=== PATIENT | female | born 1965 | race Caucasian/White ===

== ENCOUNTER 2017-09-16 13:51 | Emergency (ER) | payer MEDICARE, OTHER ==
[~2017-09-16] VITALS: Ht 165.1 cm; Wt 69.8 kg
[~2017-09-16 13:51] MED LIST: BACLOFEN 10MG T10 M1 PO; CELEXA40 MG PO; ESTRADIOL 1 MG T1 M1 PO; FLEXERIL PO; IBUPROFEN 800800 M1 PO; IBUPROFEN 800800 MG PO; TOPAMAX100 MG PO
[2017-09-16] MEDS ORDERED: ZETIA10 MG PO (13:58)
[2017-09-16] MEDS ORDERED: FISH OIL 1,001000 M2 PO (13:58)
[2017-09-16] MEDS ORDERED: PROZAC20 MG PO (13:58)
[2017-09-16] MEDS ORDERED: ERGOCALCIF50000 UNIT PO (13:58)
[2017-09-16 15:12] LABS: URINE BILIRUBIN NEGATIVE (Negative); URINE BLOOD 3+ (Negative); URINE CLARITY CLOUDY; URINE COLOR DARK YELLOW; URINE GLUCOSE-RANDOM NEGATIVE (Negative); URINE KETONES 3+ (Negative); URINE LEUKOCYTES-REFLEX TRACE (Negative); URINE NITRITE-REFLEX POSITIVE (Negative); URINE PROTEIN 3+ (Negative); URINE SPECIFIC GRAVITY >= 1.030 (1.005-1.030)
[2017-09-16 15:13] LABS: HEMATOCRIT 41.9 % (37.0-47.0); HEMOGLOBIN 14.2 gm/dL (12.0-15.0); MCH 30.5 pg (26.0-34.0); MCHC 33.8 g/dL (28.0-37.0); MCV 90.1 fL (80.0-100.0); MPV 8.4 fl. (7.2-11.1); NUCLEATED RBCS 0 /100WBC; PLATELET COUNT* 225 thou/uL (150-400); RBC 4.65 mil/uL (4.20-5.00); RDW-CV 13.7 % (10.5-14.5); WBC 16.9 thou/uL (4.0-11.0)
[2017-09-16 15:16] LABS: CALCIUM 9.2 mg/dL (8.5-10.1); CREATININE 0.8 mg/dL (0.6-1.3); POTASSIUM 3.7 mmol/L (3.5-5.1)
[2017-09-16 15:19] LABS: BACTERIA-REFLEX >30 Many /HPF (None Seen); CASTS None Seen /LPF (None Seen); CRYSTALS None Seen /LPF (None Seen); SQUAMOUS NONE SEEN /LPF (0-3); URINE RBC 0-2 Rare /HPF (0-2); URINE WBC-REFLEX >25 Many /HPF (0-5); WBC CLUMPS Moderate (None Seen)
[2017-09-16 15:21] LABS: ALBUMIN 3.2 g/dL (3.4-5.0); TOTAL BILIRUBIN 0.7 mg/dL (<0.1-1.0); TOTAL PROTEIN 8.4 g/dL (6.4-8.2)
[2017-09-16 15:31] LABS: ABSOLUTE LYMPHOCYTES 1.7 thou/uL (0.8-5.3); ABSOLUTE MONOCYTES 0.5 thou/uL (0.0-1.2); ABSOLUTE NEUTROPHILS 14.7 thou/uL (1.6-8.1); PLATELET ESTIMATE ADEQUATE
[2017-09-16] MEDS ORDERED: LEVAQUIN 500 M500 M2 PO (17:08)
[2017-09-16] MEDS ORDERED: NORCO 7.5-3251 EACH PO (17:09)
[2017-09-16] MEDS ORDERED: ZOFRAN ODT4 MG PO (17:09)
[2017-09-16 17:19] VITALS: BP 122/67
== END 2017-09-16 17:21 | disposition home or self-care (01) ==
LOC: M.ERS 13:51
PROVIDERS: Physician Assistant
DX: N12 Tubulo-interstitial nephritis, not specified as acute or chronic (principal); B34.9 Viral infection, unspecified; G80.9 Cerebral palsy, unspecified; Z88.8 Allergy status to other drugs, medicaments and biological substances; Z88.2 Allergy status to sulfonamides

== ENCOUNTER → 2017-10-18 | Outpatient (CLI) | payer MEDICARE, OTHER ==
[~2017-10-18] MED LIST changes: +AMBIEN 5 MG TABL5 M1 PO; +ERGOCALCIF50000 UNIT PO; +FISH OIL 1,001000 M2 PO; +FLOMAX0.4 MG; +LEVAQUIN 500 M500 M2 PO; +NORCO 5-325 TA1 EACH PO; +NORCO 7.5-3251 EACH PO; +PRAVACHOL20 MG PO; +PROZAC20 MG; +PROZAC20 MG PO; +VITAMIN D3400 UNIT PO; +ZETIA10 MG PO; +ZOFRAN ODT4 MG PO
[2017-10-18 10:43] LABS: ABSOLUTE EOSINOPHILS 0.2 thou/uL (0.0-0.7); ABSOLUTE LYMPHOCYTES 1.9 thou/uL (0.8-5.3); ABSOLUTE MONOCYTES 0.4 thou/uL (0.0-1.2); ABSOLUTE NEUTROPHILS 4.8 thou/uL (1.6-8.1); BASOPHILS 0.5 %; EOSINOPHILS 2.6 %; HEMATOCRIT 41.1 % (37.0-47.0); HEMOGLOBIN 13.7 gm/dL (12.0-15.0); LYMPHOCYTES 25.9 %; MCH 30.2 pg (26.0-34.0); MCHC 33.4 g/dL (28.0-37.0); MCV 90.4 fL (80.0-100.0); MONOCYTES 5.6 %; MPV 7.7 fl. (7.2-11.1); NUCLEATED RBCS 0 /100WBC; PLATELET COUNT* 312 thou/uL (150-400); POLYS 65.4 %; RBC 4.55 mil/uL (4.20-5.00); RDW-CV 14.4 % (10.5-14.5); WBC 7.3 thou/uL (4.0-11.0)
[2017-10-18 10:55] LABS: CREATININE 0.6 mg/dL (0.6-1.3); POTASSIUM 3.9 mmol/L (3.5-5.1); URIC ACID* 4.2 mg/dL (2.6-7.2)
--- NOTE | 2017-10-18 15:22 | EKG ---
[place] [address] ELECTROCARDIOGRAM REPORT Name: JOSEPHTIARA GEE Room: [facility]#: [id number] Admission: 10/18/17 Attend Phys: José Antonio Wu MD Discharge: Date of : 65 Report #: [id number] THIS REPORT FOR: //name// [facility] Test Date: 2017-10-18 Test Time: 11:06:01 Pat Name: TIARA RUIZ Department: Room: Gender: F [employer]: AUDREY : 1965 Requested By: José Antonio Wu Order Number: [id number] Reading MD: Osvaldo Godfrey Measurements Intervals Keno Rate: 70 P: 23 [place]: 164 QRS: -1 QRSD: 86 T: 20 QT: 407 QTc: 440 Interpretive Statements Sinus rhythm No previous ECG available for comparison Electronically Signed On 10-18-2017 15:22:18 [employer] by Osvaldo Godfrey [email or web address] <ELECTRONICALLY SIGNED> By: Osvaldo Godfrey MD, [facility] 10/18/17 1522 [id number] Osvaldo Godfrey MD, FACC /EPI
[2017-10-19 22:11] LABS: URINE CALCIUM 259.2 mg/24 hr (100.0-300.0); URINE CALCIUM-mg/dl 16.2 mg/dL (Not Estab.)
== END ==
LOC: M.LAB 10:15 → M.CRD 10:15
PROVIDERS: Urology
DX: Z01.818 Encounter for other preprocedural examination (principal); N20.0 Calculus of kidney

== ENCOUNTER 2017-10-27 17:25 | Emergency (ER) | payer MEDICARE, OTHER ==
[~2017-10-27] VITALS: Ht 165.1 cm; Wt 71.2 kg
[~2017-10-27 17:25] MED LIST changes: -AMBIEN 5 MG TABL5 M1 PO; -FLOMAX0.4 MG; -NORCO 5-325 TA1 EACH PO; -PRAVACHOL20 MG PO; -PROZAC20 MG; -VITAMIN D3400 UNIT PO
[2017-10-27] MEDS ORDERED: NORCO 5-325 TA1 EACH PO (18:45)
[2017-10-27 18:56] VITALS: BP 137/86
== END 2017-10-27 18:57 | disposition home or self-care (01) ==
LOC: M.ERS 17:25
DX: M79.675 Pain in left toe(s) (principal); Z88.2 Allergy status to sulfonamides; Z88.8 Allergy status to other drugs, medicaments and biological substances

== ENCOUNTER 2017-11-08 20:24 | Emergency (ER) | payer MEDICARE, OTHER ==
[~2017-11-08] VITALS: Ht 165.1 cm; Wt 69.8 kg
[~2017-11-08 20:24] MED LIST changes: +NORCO 5-325 TA1 EACH PO
[2017-11-08] MEDS ORDERED: PROZAC20 MG (20:41)
[2017-11-08] MEDS ORDERED: FLOMAX0.4 MG (20:41)
[2017-11-08 21:08] LABS: HEMATOCRIT 37.4 % (37.0-47.0); HEMOGLOBIN 12.7 gm/dL (12.0-15.0); MCH 30.6 pg (26.0-34.0); MCV 90.1 fL (80.0-100.0); MPV 7.6 fl. (7.2-11.1); NUCLEATED RBCS 0 /100WBC; PLATELET COUNT* 308 thou/uL (150-400); RBC 4.15 mil/uL (4.20-5.00); RDW-CV 14.8 % (10.5-14.5); WBC 13.4 thou/uL (4.0-11.0)
[2017-11-08 21:16] LABS: CREATININE 0.7 mg/dL (0.6-1.3); POTASSIUM 3.8 mmol/L (3.5-5.1)
[2017-11-08 21:21] LABS: ALBUMIN 3.5 g/dL (3.4-5.0); TOTAL BILIRUBIN 0.7 mg/dL (<0.1-1.0)
[2017-11-08 21:31] LABS: TOTAL PROTEIN 7.5 g/dL (6.4-8.2)
[2017-11-08 22:10] LABS: URINE BILIRUBIN NEGATIVE (Negative); URINE BLOOD 3+ (Negative); URINE CLARITY CLEAR; URINE COLOR STRAW; URINE GLUCOSE-RANDOM NEGATIVE (Negative); URINE KETONES 1+ (Negative); URINE NITRITE-REFLEX NEGATIVE (Negative); URINE PROTEIN 1+ (Negative); URINE UROBILINOGEN 0.2 E.U./dl (0.2-1.0)
[2017-11-08 22:14] LABS: URINE LEUKOCYTES-REFLEX 2+ (Negative)
[2017-11-08 22:34] LABS: SQUAMOUS 0-3 Few /LPF (0-3)
[2017-11-08 22:35] LABS: BACTERIA-REFLEX 1-9 Few /HPF (None Seen); MUCUS None Seen strn/LPF (None Seen); URINE WBC-REFLEX 6-15 Few /HPF (0-5); WBC CLUMPS Few (None Seen)
[2017-11-08 22:36] LABS: CASTS None Seen /LPF (None Seen); CRYSTALS None Seen /LPF (None Seen)
[2017-11-08 22:45] LABS: ABSOLUTE LYMPHOCYTES 1.5 thou/uL (0.8-5.3); ABSOLUTE MONOCYTES 0.3 thou/uL (0.0-1.2); ABSOLUTE NEUTROPHILS 11.7 thou/uL (1.6-8.1)
[2017-11-08 22:48] LABS: MACROCYTES Occasional; PLATELET ESTIMATE ADEQUATE
[2017-11-08] MEDS ORDERED: ZOFRAN ODT4 MG PO (22:48)
[2017-11-08 23:09] VITALS: BP 146/77
== END 2017-11-08 23:12 | disposition home or self-care (01) ==
LOC: M.ERS 20:24
PROVIDERS: Nurse Practitioner Psychiatric/Mental Health
DX: R11.0 Nausea (principal); T88.59XA Other complications of anesthesia, initial encounter; N39.0 Urinary tract infection, site not specified; G80.9 Cerebral palsy, unspecified; Z88.8 Allergy status to other drugs, medicaments and biological substances; Z88.2 Allergy status to sulfonamides; Y83.9 Surgical procedure, unspecified as the cause of abnormal reaction of the patient, or of later complication, without mention of misadventure at the time of the procedure; Y92.89 Other specified places as the place of occurrence of the external cause

== ENCOUNTER 2017-12-29 15:15 | Emergency (ER) | payer OTHER, MEDICARE ==
[~2017-12-29] VITALS: Ht 165.1 cm; Wt 73.9 kg
[~2017-12-29 15:15] MED LIST changes: +FLOMAX0.4 MG; +PROZAC20 MG
[2017-12-29] MEDS ORDERED: FISH OIL 1,001000 M2 PO (15:29)
[2017-12-29] MEDS ORDERED: VITAMIN D3400 UNIT PO (15:29)
[2017-12-29] MEDS ORDERED: PRAVACHOL20 MG PO (15:29)
[2017-12-29] MEDS ORDERED: AMBIEN 5 MG TABL5 M1 PO (15:29)
[2017-12-29 17:54] VITALS: BP 142/84
== END 2017-12-29 17:55 | disposition home or self-care (01) ==
LOC: M.ERS 15:15
DX: S06.0X0A Concussion without loss of consciousness, initial encounter (principal); S13.9XXA Sprain of joints and ligaments of unspecified parts of neck, initial encounter; S73.101A Unspecified sprain of right hip, initial encounter; G80.9 Cerebral palsy, unspecified; Z88.8 Allergy status to other drugs, medicaments and biological substances; Z88.2 Allergy status to sulfonamides; Z88.5 Allergy status to narcotic agent; V57.5XXA Driver of pick-up truck or van injured in collision with fixed or stationary object in traffic accident, initial encounter; Y93.I9 Activity, other involving external motion; Y92.89 Other specified places as the place of occurrence of the external cause; Y99.8 Other external cause status

== ENCOUNTER → 2017-12-30 | Outpatient (CLI) | payer OTHER, MEDICARE ==
[~2017-12-30] MED LIST changes: +AMBIEN 5 MG TABL5 M1 PO; +PRAVACHOL20 MG PO; +VITAMIN D3400 UNIT PO
== END ==
LOC: M.RAD 16:50
DX: M25.531 Pain in right wrist (principal); M54.6 Pain in thoracic spine; M54.5 Low back pain; N20.0 Calculus of kidney

== ENCOUNTER → 2018-01-09 | Outpatient (CLI) | payer OTHER, MEDICARE | LOC: M.MRI 07:09 | DX: S63.8X1A Sprain of other part of right wrist and hand, initial encounter (principal); X58.XXXA Exposure to other specified factors, initial encounter; M19.031 Primary osteoarthritis, right wrist; M25.462 Effusion, left knee; M25.731 Osteophyte, right wrist; Y93.89 Activity, other specified; Y92.89 Other specified places as the place of occurrence of the external cause; Y99.8 Other external cause status ==

== ENCOUNTER → 2021-08-17 | Outpatient (CLI) | payer MEDICARE, OTHER, MEDICAID | LOC: M.MRI 08-04 13:30 | PROVIDERS: ATTEND Orthopaedic Surgery | DX: S83.281A Other tear of lateral meniscus, current injury, right knee, initial encounter (principal); S83.241A Other tear of medial meniscus, current injury, right knee, initial encounter; M17.11 Unilateral primary osteoarthritis, right knee; R60.0 Localized edema; M25.561 Pain in right knee; X58.XXXA Exposure to other specified factors, initial encounter; Y93.89 Activity, other specified; Y92.89 Other specified places as the place of occurrence of the external cause; Y99.8 Other external cause status ==

== ENCOUNTER → 2021-09-17 | Outpatient (CLI) | payer MEDICARE, OTHER, MEDICAID | LOC: M.MRI 09-16 13:30 | PROVIDERS: ATTEND Nurse Practitioner Family | DX: M51.26 Other intervertebral disc displacement, lumbar region (principal); M47.816 Spondylosis without myelopathy or radiculopathy, lumbar region; W19.XXXA Unspecified fall, initial encounter; Y93.89 Activity, other specified; Y92.89 Other specified places as the place of occurrence of the external cause; Y99.8 Other external cause status ==